=== PATIENT | male | born 1985 | race Caucasian/White ===

== ENCOUNTER 2024-02-25 12:48 | Emergency (ER) | payer SELFPAY ==
[~2024-02-25] VITALS: Ht 167.6 cm; Wt 74.8 kg
[2024-02-25 13:16] VITALS: BP_SYST 155; PULSE 72; RESP 18; TEMP 97.5; O2SAT 99
[2024-02-25] MEDS: MORPHINE 4 MG INJ. 4 MG/ML VIAL IM ONE (14:18)
[2024-02-25] MEDS: LIDOCAINE 1% 10 MG/ML, 20 ML MDV SUBCUT ONE (14:19)
[2024-02-25] MEDS: BACITRACIN 1 GM OINT TP ONE (14:19)
[2024-02-25] MEDS ORDERED: CEPH-548 PO (16:18)
[2024-02-25] MEDS ORDERED: IBUP-1971 PO (16:18)
[2024-02-25] MEDS ORDERED: HYDR-3917 PO (16:18)
[2024-02-25 16:29] VITALS: BP_SYST 132; PULSE 81; RESP 16; TEMP 97.5; O2SAT 99
== END 2024-02-25 16:29 | disposition home or self-care (01) ==
LOC: SED 12:48
DX: S61.211A Laceration without foreign body of left index finger without damage to nail, initial encounter (principal); W31.2XXA Contact with powered woodworking and forming machines, initial encounter; Y93.89 Activity, other specified; Y92.89 Other specified places as the place of occurrence of the external cause; Y99.8 Other external cause status
CPT/HCPCS: 99283; 73130; 12004; 96372; J2003; J2270